=== PATIENT | female | born 1965 | race Caucasian/White ===

== ENCOUNTER 2018-06-18 11:01 | Inpatient (IN) | payer BC ==
[2018-06-18] VITALS (9 sets, daily range): BP systolic 82–120; BP diastolic 42–68
[~2018-06-18] VITALS: Ht 170.1 cm; Wt 54.4 kg
[~2018-06-18 11:01] MED LIST: DARVOCET N 1001 TAB PO; HYDROCODONE BIT1 T11 PO; LEVOFLOXACIN500 MG PO; NICODERM C21 MG/24 H TD; NKHM; OMNICEF300 MG PO; OXYCONTIN80 MG; SYMBICORT1 AE1 INH; VICODIN ES 7501 TAB PO; ZOFRAN ODT4 MG SL; ZOFRAN4 MG PO
--- NOTE | 2018-06-18 11:05 | NUR ---
PATIENT TRANSFERRED TO [facility] ROOM 2
--- NOTE | 2018-06-18 11:27 | NUR ---
Time: 1124 A 47 year old FEMALE admitted to under services of DR. ELENA BERNAL,ANNA. Pt. arrived via wheel chair from [place]. Chief complaint: NAUSEA/VOMITING. KANIKA JACKSON
--- NOTE | 2018-06-18 11:28 | NUR ---
Time: 1124 A 52 year old FEMALE admitted to under services of DR. ELENA BERNAL,ANNA. Pt. arrived via wheel chair from [place]. Chief complaint: NAUSEA/VOMITING. KANIKA JACKSON
--- NOTE | 2018-06-18 12:11 | NUR ---
COMPLAIN OF NAUSEA/ABDOMINAL PAIN. ZOFRAN AND ONE TIME TORADOL GIVEN. IV FLUIDS HUNG. AWAITING LABS TO BE DRAWN - WILL CALLDR. PARKER WITH RESULTS. PT HAS NOT EATEN SINCE YESTERDAY, WILL NOTIFY ULTRASOUND
[2018-06-18 12:28] LABS: BASO % 0.3 % (0.0-1.0); HEMATOCRIT 46.5 % (37.0-47.0); HEMOGLOBIN 15.3 g/dl (12.0-16.0); LYMPH # 0.7 10*3/uL (1.3-4.4); MEAN CELL VOLUME 90.8 fl (81.0-99.0); MEAN CORPUSCULAR HGB 29.9 pg (27.0-31.0); MEAN CORPUSCULAR HGB CONC 32.9 g/dl (33.0-37.0); MEAN PLATELET VOLUME 9.2 fl (9.6-12.3); MONO # 1.3 10*3/uL (0.1-1.0); MONO % 12.4 % (3.0-9.0); NEUT # 8.8 10*3/uL (2.3-7.9); PLATELET COUNT AUTOMATED 319 10*3/uL (130-400); RED BLOOD COUNT 5.12 10*6/uL (4.10-5.10); RED CELL DISTRI WIDTH 13.2 % (0-14.5); WHITE BLOOD COUNT 10.8 10*3/uL (4.8-10.8)
[2018-06-18 12:42] LABS: BUN 12 mg/dl (7-24); CHLORIDE 102 mmol/L (98-107); CREATININE 0.71 mg/dL (0.55-1.02); POTASSIUM 4.3 mmol/L (3.5-5.1); SODIUM 137 mmol/L (136-145)
--- NOTE | 2018-06-18 19:00 | NUR ---
PATIENT OBTAINED FROM [place]. PATIENT IS RESTING BED, ALERT&ORIENTX3. PATIENT VOICED NO COMPLAINTS AT THIS TIME. NO DISTRESS NOTED, RESP ARE ERND ON ROOM AIR. BED IS LOCKED IN LOWEST POSITION, CALL LIGHT LEFT WITHIN REACH.
--- NOTE | 2018-06-18 19:27 | NUR ---
INFORMED BY THROUGH MED STUDENT TO PLACE URINE STREP/LEGION AND PROCALCITONIN. ORDERS IN PLACE PER WISHES.
--- NOTE | 2018-06-18 20:53 | NUR ---
INFORMED THAT MANUAL BP 82/50. STATES TO RUN CURRENT IVF WIDE OPEN AND THEN RECHECK BP.
--- NOTE | 2018-06-18 20:56 | NUR ---
PATIENT MEDICATED WITH ZOFRAN FOR C/O NAUSEA. WILL MONITOR
--- NOTE | 2018-06-18 21:56 | NUR ---
ZOFRAN EFFECTIVE FOR NAUSEA
--- NOTE | 2018-06-18 22:05 | NUR ---
INFORMED THAT BOLUS IS COMPLETED, [facility] BP AT THIS TIME IS 88/42. PATIENT STATES SHE FEELS DIFFERENTLY COMPARED TO LAST BP CHECK. PATIENT IS UNABLE TO DESCRIBED SENSATION, PATIENT IS NOTED TO BE RESTING HEAD ON HANDS AND SIGHING. HR IS NSR PER CM IN 70'S. DOCTOR INFORMED. STATED TO RUN ANOTHER BOLUS AND RECHECK BP IN 30 MINUTES.
--- NOTE | 2018-06-18 22:36 | NUR ---
INFORMED OF BP MANUAL RESULT OF . STATES HE WILL BE COMING UP TO SEE SOON.
--- NOTE | 2018-06-18 22:45 | NUR ---
ON FLOOR. STATES THAT PATIENT IS GOING TO BE TRANSFERED TO UNIT. AIDS SOCIAL WORKER JIM JONES AND UNIT RN PROVIDED WITH REPORT.
--- NOTE | 2018-06-18 23:00 | NUR ---
PT. ARRIVED FROM 4E, REPORT GIVEN TO THAIS STEELE RN. PT'S VS 99.4-76-18, 113/68. PULSE OX 95% ON RA. PT. WARM AND DRY AND JOKING WITH STAFF. LEVOPHED ON HOLD PER DR. COPE. ROBIN KIM RN
--- NOTE | 2018-06-18 23:00 | NUR ---
PATIENT TRANSFERRED TO [facility] ROOM 2.
[2018-06-18 23:22] LABS: BASO % 0.2 % (0.0-1.0); HEMATOCRIT 38.6 % (37.0-47.0); HEMOGLOBIN 12.2 g/dl (12.0-16.0); LYMPH # 0.7 10*3/uL (1.3-4.4); LYMPH % 7.1 % (27.0-41.0); MEAN CELL VOLUME 93.2 fl (81.0-99.0); MEAN CORPUSCULAR HGB 29.5 pg (27.0-31.0); MEAN CORPUSCULAR HGB CONC 31.6 g/dl (33.0-37.0); MEAN PLATELET VOLUME 9.4 fl (9.6-12.3); MONO # 0.6 10*3/uL (0.1-1.0); NEUT # 7.8 10*3/uL (2.3-7.9); NEUT % 85.3 % (47.0-73.0); PLATELET COUNT AUTOMATED 245 10*3/uL (130-400); RED BLOOD COUNT 4.14 10*6/uL (4.10-5.10); RED CELL DISTRI WIDTH 13.5 % (0-14.5); WHITE BLOOD COUNT 9.1 10*3/uL (4.8-10.8)
--- NOTE | 2018-06-18 23:28 | NUR ---
4TH LITER OF IV FLUIDS INFUSING BOLUS. PT RESTING IN BED WITHOUT C/O'S. URINE SPECIMENS OBTAINED AND SENT TO LAB. WILL CONT TO MONITOR.
[2018-06-19] VITALS (8 sets, daily range): BP systolic 96–112; BP diastolic 42–60
[2018-06-19 00:08] LABS: BILIRUBIN NEGATIVE (NEGATIVE); BLOOD TRACE-INTACT (NEGATIVE); CLARITY SL CLOUDY (CLEAR); COLOR YELLOW (YELLOW); GLUCOSE TRACE (NEGATIVE); KETONE NEGATIVE (NEGATIVE); LEUKO ESTERASE TRACE (NEGATIVE); NITRITE NEGATIVE (NEGATIVE); SPECIFIC GRAVITY >= 1.030 (1.005-1.030); UROBILINOGEN 0.2 E.U./dl (0.2-1.0)
[2018-06-19 00:31] LABS: EPITHELIAL CELLS 45-50
[2018-06-19 00:32] LABS: MUCOUS TRACE
--- NOTE | 2018-06-19 04:14 | NUR ---
0000 - 0400 RESTING IN BED WITH EYES CLOSED. APPEARS TO BE SLEEPING. NO DISTRESS NOTED.
--- NOTE | 2018-06-19 06:09 | NUR ---
SLEPT WELL THIS SHIFT. IV FLUIDS CONT. BP STABLE. SEE INTERVENTION SCREEN. NO DISTRESS NOTED. CONDITION GUARDED.
--- NOTE | 2018-06-19 08:00 | NUR ---
Marketing Account Executive in to talk to patient. Patient states lives at home with her . There are 0 steps in the home. Physician: Dr. Timo Tse Pharmacy: [facility] Home health services: none Patient's level of ADLs: INDEPENDENT Patient has working utilities: yes DME: none Follow-up physician's appointment after d/c: she prefers to make her own follow up appt after discharge Does patient want to access PORTAL?: no Discharge plan discussed with patient. She lives at home with her . She is independent in her ADLs and ambulation. Discussed home health care services and she denies any home needs at this time. She states she feels much better. When medically stable she will be discharged to home. ZULY CASTELLON
--- NOTE | 2018-06-19 08:07 | NUR ---
PT RESTING. VSS. PT DENIES COMPLAINTS AT PRESENT TIME. NO ACUTE DISTRESS NOTED.
--- NOTE | 2018-06-19 11:40 | NUR ---
DR PARKER IN TO SEE PT.
--- NOTE | 2018-06-19 17:03 | NUR ---
DR WALLS UPDATED ON PT'S INCREASING AGITATION AT [facility] IN [facility]. ASKED PT IF SHE WOULD WANT TO TRY A MEDICATION FOR ANXIETY/AGITATION. PT REFUSED. DR WALLS SPOKE WITH DR ALCALA...NEW ORDERS RECEIVED TO [place] [facility]
--- NOTE | 2018-06-19 17:20 | NUR ---
PT TRANSFERED TO [facility] VIA . PT REPORT GIVEN TO RECEIVING RN.
--- NOTE | 2018-06-19 20:30 | NUR ---
PT REFUSED TO BE SWABBED AGAIN FOR MRSA OF THE NARES. STATED THAT SHE WAS ALREADY SWABBED.
[2018-06-20] VITALS: BP 124/70
--- NOTE | 2018-06-20 05:55 | NUR ---
PT CAUGHT SMOKING IN THE BATHROOM. DR. COPE, DR. PARKER, AND JERZY NOTIFIED. PT INFORMED OF POLICY AND NOT TO SMOKE AGAIN.
[2018-06-20 06:39] LABS: BASO % 0.1 % (0.0-1.0); HEMATOCRIT 38.6 % (37.0-47.0); HEMOGLOBIN 12.2 g/dl (12.0-16.0); LYMPH # 0.8 10*3/uL (1.3-4.4); LYMPH % 6.2 % (27.0-41.0); MEAN CELL VOLUME 93.5 fl (81.0-99.0); MEAN CORPUSCULAR HGB 29.5 pg (27.0-31.0); MEAN CORPUSCULAR HGB CONC 31.6 g/dl (33.0-37.0); MONO # 0.9 10*3/uL (0.1-1.0); MONO % 7.5 % (3.0-9.0); NEUT # 10.4 10*3/uL (2.3-7.9); NEUT % 85.6 % (47.0-73.0); PLATELET COUNT AUTOMATED 293 10*3/uL (130-400); RED BLOOD COUNT 4.13 10*6/uL (4.10-5.10); WHITE BLOOD COUNT 12.1 10*3/uL (4.8-10.8)
[2018-06-20 06:42] LABS: BUN 8 mg/dl (7-24); CHLORIDE 114 mmol/L (98-107); POTASSIUM 3.7 mmol/L (3.5-5.1); SODIUM 144 mmol/L (136-145)
[2018-06-20 06:44] LABS: CREATININE 0.67 mg/dL (0.55-1.02)
--- NOTE | 2018-06-20 07:35 | NUR ---
Patient signed out AMA. Patient encouraged to stay and advised of possible consequences of premature discharge. Physician and material control supervisor FELTON notified. Patient instructed what to do regarding care post-departure from the hospital; emergency phone numbers provided. Patent was accompanied by SELF. DEEJAY LOW
--- NOTE | 2018-06-20 07:40 | NUR ---
PATIENT REFUSED TO SIGN AMA FORM.
== END 2018-06-20 07:40 | disposition left against medical advice (07) | DRG 865 ==
LOC: 4E 11:01 → ICCU 11:01 → 4E 06-19 17:30
PROVIDERS: Internal Medicine; ADMIT Internal Medicine
DX: B34.9 Viral infection, unspecified (principal); J18.9 Pneumonia, unspecified organism; J44.1 Chronic obstructive pulmonary disease with (acute) exacerbation; J44.0 Chronic obstructive pulmonary disease with (acute) lower respiratory infection; I95.9 Hypotension, unspecified; D72.9 Disorder of white blood cells, unspecified; D72.810 Lymphocytopenia; R73.9 Hyperglycemia, unspecified; R31.9 Hematuria, unspecified; Z53.21 Procedure and treatment not carried out due to patient leaving prior to being seen by health care provider; M54.9 Dorsalgia, unspecified; Z71.6 Tobacco abuse counseling; G89.29 Other chronic pain; F17.210 Nicotine dependence, cigarettes, uncomplicated; Z98.891 History of uterine scar from previous surgery; Z90.710 Acquired absence of both cervix and uterus; Z98.51 Tubal ligation status

== ENCOUNTER → 2022-06-26 | Outpatient (CLI) | payer BC | END | disposition home or self-care (01) | LOC: RAD 14:52 | PROVIDERS: ATTEND Internal Medicine | DX: M79.89 Other specified soft tissue disorders (principal); M79.672 Pain in left foot; M79.671 Pain in right foot; M79.642 Pain in left hand; M79.641 Pain in right hand ==